=== PATIENT | male | born 1950 | race Caucasian/White ===

== ENCOUNTER → 2020-08-11 10:33 | Outpatient (CLI) | payer OTHER, SELFPAY ==
[2020-08-11 13:48] LABS: COVID19 -Nasal RAPID Negative (Negative)
== END ==
PROVIDERS: PCP Physician Assistant; Referring Provider Orthopaedic Surgery Adult Reconstructive Orthopaedic Surgery; Visit Provider Student in an Organized Health Care Education/Training Program
DX: Z01.812 Encounter for preprocedural laboratory examination (principal); Z20.822 Contact with and (suspected) exposure to COVID-19
CPT/HCPCS: 87635

== ENCOUNTER 2020-08-13 11:31 | Day surgery (SDC) | payer OTHER, SELFPAY ==
[2020-08-07 10:47] VITALS: BMI 31.7
[2020-08-13] VITALS (15 sets, daily range): BP systolic 95–146; BP diastolic 54–80; PULSE 61–81; RESP 8–18; TEMP 36.1–36.7; O2SAT 94–99; BMI 31.7
--- NOTE | 2020-08-13 | DI.RAD.S_ITS ---
PROCEDURE: XR HIP W PEL IF DONE RT 2V INDICATIONS: TOTAL HIP TECHNIQUE: 2 view(s) of the hip acquired. COMPARISON: None. FINDINGS: Bones: Patient is status post right hip arthroplasty, with hardware components in expected positions. The hip joint appears congruent. The visualized bony structures appear intact. Soft tissues: Overlying postoperative changes are noted. No suspicious soft tissue densities. IMPRESSION: Normal alignment after right total hip arthroplasty performed earlier same day. Dictated by: Jeremy Armenta M.D. on 08/13/2020 at 16:21 Approved by: Jeremy Armenta M.D. on 08/13/2020 at 16:21
--- NOTE | 2020-08-13 10:20 | DI.RAD.S_ITS ---
PROCEDURE: XR PELVIS 1-2V INDICATIONS: post-op TECHNIQUE: Single frontal view of the pelvis acquired. COMPARISON: [facility], CR, XR HIP W PEL IF DONE RT 2V, 08/13/2020, 14:07. FINDINGS: Bones: No fractures or dislocations. No suspicious bony lesions. A previously present left total hip arthroplasty is now well visualized with reference to the intraoperative/immediate postoperative plain films earlier today, and the current examination shows no evidence of that device loosening or disruption. The new right-sided total hip arthroplasty shows normal alignment, and no operative complication is suspected. Soft tissues: Visualized bowel gas pattern is normal. No suspicious soft tissue calcifications. IMPRESSION: New right total hip arthroplasty appears normally aligned. Old left total hip arthroplasty appears free of evidence of loosening or disruption. Dictated by: Jeremy Armenta M.D. on 08/13/2020 at 16:21 Approved by: Jeremy Armenta M.D. on 08/13/2020 at 16:23
[2020-08-13] MEDS: ACETAMINOPHEN 325 MG TABLET 975 MG PO (12:06)
[2020-08-13] MEDS: CELECOXIB 200 MG CAPSULE PO (12:07)
[2020-08-13] MEDS: PREGABALIN 75 MG CAPSULE PO (12:07)
[2020-08-13] MEDS: LACTATED RINGERS 1,000 ML 42 ML IV (12:07)
--- NOTE | 2020-08-13 12:44 | PM.PREOP ---
Pre-operative Note COVID-19 COVID-19 status: Negative Result date/Date tested (Pos, Neg/Pending): 08/11/20 Interval Note History & Physical reviewed/Exam performed by Physician: Yes Changes to H&P: No H&P completed within 30 days and has changed as indicated here:: Plan for right anterior VIVIAN
[2020-08-13] MEDS: CEFAZOLIN 2 GM/100 ML FROZ.PIGGY IV (13:21)
[2020-08-13] MEDS: TRANEXAMIC ACID 1,000 MG VIAL 2000 MG INJ ×2 (13:40→14:59)
[2020-08-13] MEDS: KETOROLAC 30 MG/ML VIAL IV (13:47)
[2020-08-13] MEDS: MORPHINE 4 MG/ML INJ INJ (13:49)
[2020-08-13] MEDS: ROPIVACAINE 0.5% PF 5 MG/ML 20ML VIAL 60 ML INJ (13:49)
--- NOTE | 2020-08-13 13:55 | SUR.OPER ---
Supine, head on pillow, torso on pink pad positioner. Iliac crest at flex of foot end of table. Gel roll under operative hip. Both arms secured on arm boards <90 degrees abduction.
--- NOTE | 2020-08-13 14:59 | P.OP_ITS ---
Operative Date/Time/Diagnoses Date of procedure: 08/13/20 Time of procedure: 14:59 Pre-op diagnosis: right hip OA Post-op diagnosis: same Procedure & Clinicians Procedure: Right anterior VIVIAN Same procedure as scheduled: Yes Indications: Right hip osteoarthritis with [id number] articulation of the acetabulum on femoral head as well as large head neck junction osteophytes. Large rim osteophytes. Resistant to further conservative measures. Surgeon: Philip Zhu Adding Machine Mechanic: Jermaine Vance Anesthesia Type: General and Spinal Operative Notes Findings: Large rim osteophytes large head neck junction osteophytes end-stage osteoarthritis of the right hip. Closure Type: primary Specimen(s): none sent Prosthetic devices, grafts, tissues, transplants, or devices: [employer] [employer] R3 cup 54 mm diameter 3 hole 1x 25mm screw 1x 20 mm screw 54 mm x 36 mm neutral offset polyethylene liner Size 7 standard offset anthology femoral stem 36+ 4 delta Biolox ceramic head Estimated Blood Loss (mL): 300 Blood products transfused: none Procedure in detail: Patient was met in the preoperative holding area where the site and side of surgery were marked by . Informed consent had been reviewed and signed in clinic was also reviewed in the preoperative holding area all last minute questions were answered. Patient was then brought back in the operating room where he was induced under general anesthesia. Both feet were placed in well-padded on a table boots. The right lower extremity then prepped and draped in normal sterile fashion. A surgical time-out was performed verifying the site and side of surgery as well as the name of the patient. A skin incision over the right anterior hip was made in the skin using 10. Blade starting approximately 2 cm distal and 1 cm lateral to the ASIS aiming towards the fibular head. Electrocautery was then used to dissect down to the level of the tensor fascia. A new 10. Blade was then used to incise the tensor fascia Allis clamp was placed on the medial leaflet of the tensor fascia of the tensor muscle itself was reflected laterally and a Cobra was placed over the superior aspect of the femoral neck. A Meyerding retractors then placed over the lateral aspect of the rectus femoris and retracted medially the was good exposure to the ascending branch of the femoral circumflex vessels. These were coagulated using electrocautery. A 2nd Cobra retractor was then placed in the inferior aspect of the femoral neck. And the pericapsular fat was removed. A bent Hohmann was placed over the anterior lip of the acetabulum to give us good exposure to the capsule. Inverted T- shaped capsulotomy was then performed in the FiberWire sutures were used for the superior and inferior leaflet tag sutures. The Cobra retractors then placed intracapsularly which gave us good exposure the femoral neck. This point was noted he had copious large head neck junction osteophytes. A reciprocating saw was then used to make our femoral neck cut. A corkscrew was then used to remove the femoral head. A soft tissue sleeve protector was then placed into the wound and retractors were then replaced to give us acetabular exposure. The remnant of the labrum was removed with a [place] blade and a pituitary rongeur. The pulmonary was then removed using suction and electrocautery. Next I began reaming with a 44 mm Reamer to medialized I then brought in fluoroscopy and the final reamings under fluoroscopic guidance. I up sized by 2s until I got to a 52 mm Reamer was started have good fit I dissected 53 mm Reamer and reamed this under fluoroscopic guidance as well a 54 mm 3 hole R3 cup was then selected and malleted into place under fluoroscopic guidance. This had excellent fit and bite. Two dome screws were then placed and the polyethylene liner was then [place] kobe making sure the tabs were flush with the rim of the cup and there is no soft tissue interposition. At this point posterior inferior osteophyte was removed using a curved osteotome and a rongeur. Next I placed a femoral elevator hook into the posterior aspect of the femur the femur was then externally rotated to 120? of external rotation extended to the floor and adducted. Next a bent Hohmann was placed over the superior aspect of the superior leaf of the capsulotomy and the capsule was further released off the inner shoulder of the greater trochanter to produce a soft spot. Once this was achieved a single-point retractors placed over the top of the greater trochanter and a Meyerding retractor was then placed over the medial calcar to give us good exposure. A canal finer was then used followed by a chili pepper broach to the lateralize followed by a size 1 broach then began upsizing by 1 until I got to a size 7 broach. At this point I placed a standard offset neck and we trialed a 36+ 0 head. The hip was reduced. The hip was stable to maximal external rotation as well extra external rotation 90? extension the floor. At this point fluoroscopy was brought in which showed good canal fit with the stem and did appear to be a little short on the operative side. The hip was then dislocated the trial components were removed as well as the broach. A size 7 standard offset anthology stem was then selected and malleted into place. Next a 36+ 4 delta Biolox ceramic head was malleted onto the trunnion and the hip was reduced a final time. Hip was stable to maximal external rotation as well as external rotation 90? extension the floor. Betadine solution was then placed in the wound allowed to sit for several minutes final fluoroscopic imaging was obtained. I then copiously irrigated the hip with normal saline. Periarticular soft tissue local anesthetic infiltration was then performed the capsulotomy was repaired using a running Ethibond suture in the FiberWire tag sutures removed. The tensor fascia was repaired using a running locking 1. Vicryl followed by 2 Vicryl in the subcutaneous layer followed by 3-0 Stratafix in subcuticular layer followed by Dermabond and Aquacel dressing. Complications: none Post-operative Condition: stable Disposition: PACU Plan for aftercare: 24 hours post-op abx, WBAT RLE, ASA 81mg BID for 6 weeks for DVT prophylaxis
[2020-08-13] MEDS: HYDROMORPHONE 2 MG INJ IV (15:49)
[2020-08-13] MEDS: OXYCODONE IR 5 MG TABLET PO (15:59)
--- NOTE | 2020-08-13 16:40 | SUR.PHASEI ---
Pt transferred to 220. Hand-off at bedside to Humberto RN Bed lowered, call light in reach. Family at bedside.
[2020-08-13] MEDS: LACTATED RINGERS 1,000 ML 125 ML IV (16:49)
[2020-08-13] MEDS: IBUPROFEN 400 MG TABLET PO ×2 (16:49→20:58)
[2020-08-13] MEDS: ACETAMINOPHEN 325 MG TABLET 650 MG PO ×2 (16:49→20:52)
[2020-08-13] MEDS: ASPIRIN EC 81 MG TABLET PO (20:52)
[2020-08-13] MEDS: DOCUSATE 100 MG CAPSULE PO (20:52)
[2020-08-13] MEDS: CEFAZOLIN 1 GM VIAL 2 GM IV (20:53)
[2020-08-14] MEDS: IBUPROFEN 400 MG TABLET PO ×4 (00:55→12:52)
[2020-08-14] MEDS: OXYCODONE IR 5 MG TABLET PO ×3 (00:56→12:52)
[2020-08-14] MEDS: LACTATED RINGERS 1,000 ML 125 ML IV (01:03)
--- NOTE | 2020-08-14 02:08 | PC.NURSE ---
patient is alert and oriented. Breath sounds CTA with RA sat of 96%. HRR. Denies nausea. BT present and abdomen is soft; patient uncertain if he has passed flatus since return from surgery. Voiding per urinal; denies dysuria, frequency or urgency and urine is clear yellow. Is able to turn himself in bed. Gait not assessed at this time. Aquacel dressing to right anterior hip is CDI. Does have numbness in right thigh above knee and some chronic numbness in right foot. States pain is 6/10 so medicated with scheduled Ibuprofen + Oxycodone and ice pack applied; patient now asleep. Wearing bilateral calf SCD's. Fall risk score is low but bed alarm on for safety.
[2020-08-14 05:21] VITALS: BP 130/61; PULSE 76; RESP 19; TEMP 36.3; O2SAT 97
[2020-08-14] MEDS: CEFAZOLIN 1 GM VIAL 2 GM IV (05:25)
[2020-08-14 06:22] LABS: Hematocrit 36.5 % (41-53); Hemoglobin 12.1 g/dL (13.5-17.5)
[2020-08-14 08:00] VITALS: BP 127/75; PULSE 65; RESP 17; TEMP 36.6; O2SAT 97
[2020-08-14] MEDS: ACETAMINOPHEN 325 MG TABLET 650 MG PO (08:34)
[2020-08-14] MEDS: DOCUSATE 100 MG CAPSULE PO (08:34)
[2020-08-14] MEDS: allopurinoL 100 MG TABLET 200 MG PO (08:34)
[2020-08-14] MEDS: ASPIRIN EC 81 MG TABLET PO (08:34)
[2020-08-14] MEDS: CHLORTHALIDONE 25 MG TABLET PO (08:34)
--- NOTE | 2020-08-14 08:44 | CM.DANOTE ---
DCP: Case received, EMR reviewed and met with patient. Introduced self and role. Was able to obtain information regarding patient's baseline activity status prior to having surgery. DCP assessment completed with information currently available. Patient is a 70 year old male who admitted yesterday morning to the care of the orthopedic team. PCP: Dr. Gomez/ [facility] Payer: confirmed: [facility]. Patient came to the hospital for a surgical procedure. He had a right anterior total hip arthroplasty. He has had history of chronic hip pain secondary to osteoarthritis. Met with patient in his room. He was sitting up in bed having breakfast. Patient is pleasant. He was in the [employer] in [place]. He confirmed that his ex-, Mckayla, will be assisting him when he goes home. He has not yet worked with [employer]. He resides in [place]. He usually sees Dr. Gomez as his primary care provider, but also has [facility], [facility]. He has been driving, but also has been using a cane, and has a FWW as well for his chronic pain. P: DCP to continue to follow. Patient should be able to go home when he is medically stable and cleared by P.T. Carrol Moser RN/Np
--- NOTE | 2020-08-14 09:26 | PM.PNPO.1 ---
Subjective Subjective Date Patient Seen: 08/14/20 Time Patient Seen: 09:27 Interval history: Patient states he is doing well overall and is in minimal discomfort at rest. At this time the patient denies fever, chills, nausea, chest pain, shortness of breath, or urinary retention. Patient reports good sensation throughout the bilateral lower extremity. The explains that he is looking forward to working with physical therapy and ultimately being discharged home today. Exam Vital Signs (past 8 hours): - 08/14/20 05:21 08/14/20 08:00 Temperature 97.3 F L 97.8 F Pulse Rate 76 65 Respiratory Rate 19 17 Blood Pressure 130/61 127/75 Pulse Oximetry 97 97 Oxygen Delivery Method Room Air Oxygen Flow Rate 0 Narrative Exam Narrative: Pleasant 70-year-old male postop day 1 status post right anterior total hip arthroplasty. Patient is resting comfortably in bed, is in no acute distress, is alert and oriented x3. Skin is warm dry, and the skin surrounding the incision site is free of erythema, warmth, induration, or discharge. Dressing over the incision site is free of strike through is clean and dry. Good sensation appreciated throughout the bilateral lower extremities to light touch. Ankle dorsiflexion, plantar flexion, eversion, inversion performed bilaterally without difficulty or discomfort. Calves are soft nontender, negative Homans sign. Capillary refill less than 2 seconds, palpable pulses appreciated. No other signs of DVT appreciated at this time. Const General: cooperative, healthy appearing and comfortable Resp Effort & Inspection: normal respiratory effort and able to speak in complete sentences Skin General: no rashes or lesions noted Objective Labs Result Diagrams: 08/14/20 05:52 Labs: Laboratory Results - last 24 hr 08/14/20 05:52 Hgb 12.1 L Hct 36.5 L PFSH Medical History Acid reflux Anxiety Depression Gout Hearing loss History of anesthesia reaction HTN (hypertension) Jaundice (~2012) Osteoarthritis Panic attacks Surgical History History of arthroplasty of left hip (2007) History of arthroscopy of both shoulders History of vasectomy Hx of cholecystectomy (~2012) Social History household members: spouse Smoking Status: Current every day smoker alcohol intake: current Assessment & Plan Post-op Postoperative Procedures: Procedures Operation Date: 08/13/20 13:15 Actual Procedures Side Surgeon p Total Hip Arthroplasty/Anterior Approach Right Philip Zhu MD Postoperative day: 1 Postoperative status: doing well Postoperative plan: ambulate Postoperative plan narrative: Patient is to work on ambulation with physical therapy with the assistance of a front wheeled walker. Patient to remain weight-bearing as tolerated at this time. Current pain management regimen is to be continued as is currently controlling the patient's pain level adequately. Aspirin 81 mg twice daily is to be continued for DVT prophylaxis. Patient will possibly be discharged today following successful visit with PT. Time Spent With Patient Time with patient: 15-24 minutes Quality VTE Deep Vein Thrombosis/Pulmonary Embolism Present on Admission: No
--- NOTE | 2020-08-14 10:09 | PM.DS.1 ---
History of Present Illness History of Present Illness Date Patient Seen: 08/14/20 Time Patient Seen: 10:10 Chief complaint: OPB Narrative: Referred to previous HPI. Discharge Providers Provider Discharge Date: 08/14/20 Primary care physician: Justen Gardner PA-C Consults: 08/13/20 10:19 Consult to Anesthesiology Routine Comment: Consulting Provider: Anesthesiologist Reason for consultation: Regional block for post operative pain control 08/13/20 12:32 Consult to Respiratory Therapy Evaluate & Treat Comment: Physician Instructions: Evaluate and treat 08/13/20 16:29 Consult to Discharge Planning Routine Comment: Consult to Physical Therapy Evaluate & Treat Comment: Physician Instructions: post op VIVIAN protocol Consult to Respiratory Therapy Evaluate & Treat Comment: Physician Instructions: Evaluate and treat Discharge provider: Sourav Stevens PA-C Summary Hospital Course Discharge Diagnosis: Right hip osteoarthritis Status post right anterior total hip arthroplasty Hospital Course: Patient was admitted to the hospital following the above-listed procedure for the above-listed diagnosis. Following the procedure the patient has been convalescing appropriately and his pain has been managed with his current pain management regimen. The patient is successfully worked on ambulation with PT with the assistance of a front wheeled walker. Aspirin 81 mg twice daily has been administered for DVT for prophylaxis. Throughout the course of his stay in the hospital the patient has denied fever, chills, nausea, chest pain, shortness of breath, or urinary retention. Patient has remained weight-bearing as tolerated with anterior hip replacement precautions. Status at Discharge Cognitive/behavioral status at discharge: oriented Functional status at discharge: uses cane/walker Overall status at discharge: patient is progressing back to baseline Exam Vital Signs (past 8 hours): - 08/14/20 05:21 08/14/20 08:00 Temperature 97.3 F L 97.8 F Pulse Rate 76 65 Respiratory Rate 19 17 Blood Pressure 130/61 127/75 Pulse Oximetry 97 97 Oxygen Delivery Method Room Air Oxygen Flow Rate 0 Narrative Exam Narrative: Pleasant 70-year-old male postop day 1 status post right anterior total hip arthroplasty. Patient is resting comfortably in bed, is in no acute distress, is alert and oriented x3. Skin is warm dry, and the skin surrounding the incision site is free of erythema, warmth, induration, or discharge. Good sensation appreciated throughout the bilateral lower extremities to light touch. Ankle dorsiflexion, plantar flexion, eversion, inversion performed bilaterally without difficulty or discomfort. Calves are soft nontender, negative Homans sign. Capillary refill less than 2 seconds, palpable pulses appreciated. No other signs of DVT appreciated at this time. Const General: cooperative, healthy appearing and comfortable Resp Effort & Inspection: normal respiratory effort and able to speak in complete sentences Skin General: no rashes or lesions noted Objective Labs Result Diagrams: 08/14/20 05:52 Labs: Laboratory Results - last 24 hr 08/14/20 05:52 Hgb 12.1 L Hct 36.5 L PFSH Medical History Acid reflux Anxiety Depression Gout Hearing loss History of anesthesia reaction HTN (hypertension) Jaundice (~2012) Osteoarthritis Panic attacks Surgical History History of arthroplasty of left hip (2007) History of arthroscopy of both shoulders History of vasectomy Hx of cholecystectomy (~2012) Social History household members: spouse Smoking Status: Current every day smoker alcohol intake: current Discharge Assessment & Plan Assessment and Plan Assessment: Patient is doing well. Plan of Treatment: Patient is to continue working with PT in the outpatient setting following discharge from the hospital. Patient is to remain weight-bearing as tolerated with the assistance of a front wheeled walker, anterior hip replacement precautions. Current pain management regimen is to be continued as it is adequately controlled the patient's pain level. Aspirin 81 mg twice daily is to be continued for 6 weeks for DVT prophylaxis. First postoperative visit in the clinic is scheduled for 2 weeks following discharge from the hospital. The dressing over the incision site is to remain clean dry and intact. Patient is to contact the clinic if the dressing is removed or damaged. Any concerns or questions should be reported to the clinic. Any increased redness, swelling, pain, or discharge around the incision site should be reported to the clinic. Discharge Plan Discharge Plan Patient Disposition: Home Provider Discharge Comment: Patient cleared for discharge pending PT clearance. Discharge orders & Medications Discharge Orders: Discharge (Order); Ordered 08/14/20 Ordered By: Sourav Stevens Prescriptions: New acetaminophen 325 mg Tablet 650 mg PO TID Qty: 90 RF: 0 aspirin 81 mg Tablet,Delayed Release (Dr/Ec) 81 mg PO BID Qty: 90 RF: 0 ibuprofen 400 mg Tablet 400 mg PO Q4HR Qty: 90 RF: 0 oxycodone 5 mg Tablet 10 mg PO Q3HR PRN (Reason: Pain, Severe (7-10)) Qty: 42 RF: 0 Continued celecoxib 200 mg Capsule 200 mg PO DAILY PRN (Reason: Pain) RF: 0 chlorthalidone 25 mg Tablet 25 mg PO DAILY RF: 0 allopurinol 100 mg Tablet 200 mg PO DAILY RF: 0 aspirin [Aspirin Low Dose] 81 mg Tablet,Delayed Release (Dr/Ec) 81 mg PO DAILY RF: 0 fluticasone propionate 50 mcg/actuation [place],Suspension 1 spray INTRANASAL BID PRN (Reason: Congestion) RF: 0 Follow up/Referrals: Justen Gardner PA-C [Primary Care Provider] - Diet/Activity/Treatments Diet: Diet as Tolerated Activity: Weight-bearing as tolerated with the assistance of a front wheeled walker. Skin/Wound/Dressing Care Report to your healthcare provider any signs of infection, such as:: chills, fever, night sweats, increased pain, unusual drainage and unusual redness Dressing: Dressing over the incision site is to remain intact. Contact the clinic if the dressing becomes soiled, saturated, or destroyed. Other wound treatment: Avoid placing topical ointments over the incision site. Visit Report/Discharge Packet Instructions: DI for Hip Replacement Stand Alone Forms: Surgery Discharge Discharge Data Primary Care Provider: Justen Gardner Attending Provider: Philip Zhu VTE Deep Vein Thrombosis/Pulmonary Embolism Present on Admission: No
--- NOTE | 2020-08-14 10:10 | PT.IIE ---
Current Diagnoses Unilateral primary osteoarthritis, right hip (08/13/20) Surgery Performed Operation Date: 08/13/20 13:15 Actual Procedures p Total Hip Arthroplasty/Anterior Approach(Right) - Philip Zhu MD Surgical History (Last Reviewed 08/14/20 @ 10:12 by Sourav Stevens PA-C) History of arthroplasty of left hip (2007) History of arthroscopy of both shoulders History of vasectomy Hx of cholecystectomy (~2012) Medical History (Last Reviewed 08/14/20 @ 10:12 by Sourav Stevens PA-C) Acid reflux Anxiety Depression Gout Hearing loss History of anesthesia reaction HTN (hypertension) Jaundice (~2012) Osteoarthritis Panic attacks Physical Therapy Inpatient Evaluation/Re-Eval M1 PT/OT-IP Prior Functional Status Start: 08/14/20 12:26 Freq: NEEDED Status: Active Protocol: Document 08/14/20 10:10 AB (Rec: 08/14/20 12:42 [email or web address] Medical Review Prior Functional Status Medical History Reviewed Yes Communication able to make needs known Mobility and Gait pt stated that he is modified independent with all mobilities, uses FWW indoors or furniture cruises as well and occasionally uses a his 2 walking sticks Social History Household Members spouse Living Arrangements Mobile home Number of Floors (Floors) One Floor Number of Stairs To Enter/Railing? 3 steps B rails to enter Home Environment High Toilet,Tub/Shower Home Equipment Front Wheel Walker,Straight Cane Employment Status Retired M2 PT-IP Current Condition Start: 08/14/20 12:26 Freq: NEEDED Status: Active Protocol: Document 08/14/20 10:10 AB (Rec: 08/14/20 12:42 AB [id number]) Physical Therapy Current Condition Current Condition Evaluation Date 08/14/20 Treatment Diagnosis s/p R VIVIAN anterior approach; difficulty in walking Onset Date 08/13/20 Precautions Anterior Hip Precautions No Hip Extension,No Hip External Rotation Weight Bearing Status Weight Bearing Status Weight Bear as Tolerated Allowed Weight Bearing Amount (enter % RLE WBAT or #) (%) M3 PT-IP Subjective Start: 08/14/20 12:26 Freq: NEEDED Status: Active Protocol: Document 08/14/20 10:10 AB (Rec: 08/14/20 12:42 AB [email or web address]) Subjective Physical Therapy Visit Type Type Initial Evaluation Visit Start Time 10:10 Visit Stop Time 11:10 Total Visit Minutes 60 Number of CAT BREEDER Visits 0 Physical Therapy Visit Comments Patient Comments pt is agreeable to do PT Therapy Pain Assessment Pain When Pain Assessed At Rest Pain Present Pain Present Pain Reported Location r hip Intensity 3 Scale Used Numeric (0 - 10) Pain Management Techniques Apply Cold,Distraction, Modification of Treatment,Re- positioning,Timing of Activity with Medications M4 PT-IP Mobility and Gait Start: 08/14/20 12:26 Freq: NEEDED Status: Active Protocol: Document 08/14/20 10:10 AB (Rec: 08/14/20 12:42 AB [id number]) PT-Bed Mobility Assessment Supine to Sit Supine to Sit Standby Assistance PT-Transfer Assessment Sit to and From Stand Sit to and from Stand Contact Guard Assistance,1 Person Assistance,Use of Upper Extremities Equipment Transfer Assistive Device Gait Belt,Front Wheeled Walker Orthotic/Prosthetic Devices or Brace: No Transfers Transfer Destination Chair Transfer Technique ambulated using FWW Transfer Ability Level of Assist Contact Guard Assistance,1 Person Assistance,Use of Upper Extremities Comments Mobility Comments educated pt on hip precautions . pt requires cues to recall. completed supine to sit SBA and was able to sit on EOB SBA . pt completed sit to stand CGA and ambulated in room using FWW CGA and cues for precautions. pt rested and agreed to ambulate in hallway after resting. completed ~ 100 ft of ambulation using FWW SBA to CGA and occasional cues for safety and precautions. educated pt on stair climbing technique and completed up/ down steps using bilateral rails CGA. assisted pt back to his room. ambulated from w/c to chair using FWW SBA. reviewed techniques with pt and pt continues to get confuse with precautions. set up caregiver training but pt was not able to get a hold of his spouse. will conduct caregiver training in the afternoon. Left pt on chair with call light and table placed within reach. Gait Assessment Gait Gait Assistance Required: Standby Assistance,Contact Guard Assist Distance (Feet) 100 Able to Maintain Weight Bearing Status Yes During Gait Assistive Devices Assistive Device Gait Belt,Front Wheeled Walker Orthotic/Prosthetic Devices or Brace: No Gait Deviations General Gait Pattern Decreased Stride Length, Decreased Feet Clearance Factors Limiting Gait Function Factors Limiting Gait Function Decreased Activity Tolerance, Decreased Strength,Difficulty Following Directions,Limited Range of Motion,Pain,Poor Safety Awareness Comments Gait Comments pls refer to mobility section for details Stair Climbing Assessment Evaluation Level of Assist On Stairs Contact Guard Assistance Devices Stair Climbing Assistive Devices Left Railing,Right Railing Technique/Endurance Stair Climbing Direction Ascend and Descend Stair Climbing Technique Step to Step Number of Steps Climbed 3 Query Text: Stair Climbing Set # Repetitions (reps) 1 PT-Balance Assessment Sitting Balance and Reactions Static Sitting Balance Ability Good Dynamic Sitting Balance Ability Good Standing Balance and Reactions Static Standing Balance Ability Fair Dynamic Standing Balance Ability Fair Device Used FWW M5 PT-IP Objective Assessments Start: 08/14/20 12:26 Freq: NEEDED Status: Active Protocol: Document 08/14/20 10:10 AB (Rec: 08/14/20 12:42 AB [email or web address]) Orientation Orientation/Cognition Level of Alertness Alert Orientation Name,Place,Situation Safety Awareness Decreased Safety Awareness Memory Description Short Term Impaired Gross Range of Motion Lower Extremity ROM Assessment Within Functional Limits Strength Lower Extremity Strength Assessment Right Impaired Hip 3+/5 Knee 4-/5 Coordination Assessment Gross Coordination Gross Coordination WNL Sensation Assessment Sensation Gross Sensation WNL Muscle Tone Muscle Tone WNL Yes M6 PT-IP Treatment Start: 08/14/20 12:26 Freq: NEEDED Status: Active Protocol: Document 08/14/20 10:10 AB (Rec: 08/14/20 12:42 AB [email or web address]) Physical Therapy Treatment Education Education Provided Precautions,Weight Bearing Status,Post-Op Packet,Safety M7 PT-IP Assessment and Plan Start: 08/14/20 12:26 Freq: NEEDED Status: Active Protocol: Document 08/14/20 10:10 AB (Rec: 08/14/20 12:42 AB [email or web address]) PT Summary Assessment and Plan Potential Rehabilitation Potential Good Status of Condition at Evaluation Stable Summary Impairments Pain,ROM,Strength,Balance, Coordination,Cognition,Bed Mobility,Transfers,Gait, Activity Tolerance Assessment Summary pt requiring SBA to CGA with mobility. caregiver training will be conducted in the afternoon with spouse as pt continues to require cues to maintain hip precautions. pt plans to go home after caregiver training. pt stated that he is set up for outpt PT. Goals Bed Mobility Goal Independent Transfer Goal Independent,Front Wheeled Walker Gait Goal Independent,Front Wheel Walker Gait Distance 150 Other Goals up/down 3 steps B rails SBA Days to Meet Goals 3 Frequency of Treatment Frequency Of Treatment Twice a Day Treatment Plan Physical Therapy Treatment Plan Bed Mobility Training,Transfer Training,Gait Training, Therapeutic Exercise,Balance Retraining,Post Op Education, Discharge Planning,Hot or Cold Pack,Neuromuscular Re-ed, Coordination Retraining,Manual Therapy Other Recommendations and Next Treatment caregiver training Focus Precautions Anterior Hip Precautions No Hip Extension,No Hip External Rotation Recommendations To Nursing Amount of Assist Needed 1 Person Assist Discharge Recommendations PT Discharge Recommendations Home with Assistance, Outpatient PT Transportation Needs at Discharge Private Vehicle
[2020-08-14 12:00] VITALS: BP 134/73; PULSE 80; RESP 18; TEMP 37.2; O2SAT 95
--- NOTE | 2020-08-14 13:38 | PT.IPTN ---
Current Diagnoses Unilateral primary osteoarthritis, right hip (08/13/20) Surgery Performed Operation Date: 08/13/20 13:15 Actual Procedures p Total Hip Arthroplasty/Anterior Approach(Right) - Philip Zhu MD Physical Therapy Treatment Note M2 PT-IP Current Condition Start: 08/14/20 12:26 Freq: NEEDED Status: Active Protocol: Document 08/14/20 10:10 AB (Rec: 08/14/20 12:42 AB [email or web address]) Physical Therapy Current Condition Current Condition Evaluation Date 08/14/20 Treatment Diagnosis s/p R VIVIAN anterior approach; difficulty in walking Onset Date 08/13/20 Precautions Anterior Hip Precautions No Hip Extension,No Hip External Rotation Weight Bearing Status Weight Bearing Status Weight Bear as Tolerated Allowed Weight Bearing Amount (enter % RLE WBAT or #) (%) M3 PT-IP Subjective Start: 08/14/20 12:26 Freq: NEEDED Status: Active Protocol: Document 08/14/20 12:59 CLB (Rec: 08/14/20 13:59 CLB [id number]) Subjective Physical Therapy Visit Type Type Treatment Note Visit Start Time 12:59 Visit Stop Time 13:38 Total Visit Minutes 39 Notes present for CG training Number of DIRECTOR OF OCCUPATIONAL HEALTH Visits 0 Physical Therapy Visit Comments Patient Comments pt is agreeable to do PT Therapy Pain Assessment Pain When Pain Assessed At Rest Pain Present Pain Present Pain Reported Location r hip Intensity 2 Scale Used Numeric (0 - 10) Pain Management Techniques Re-positioning,Timing of Activity with Medications M4 PT-IP Mobility and Gait Start: 08/14/20 12:26 Freq: NEEDED Status: Active Protocol: Document 08/14/20 12:59 CLB (Rec: 08/14/20 13:59 CLB [id number]) PT-Transfer Assessment Sit to and From Stand Sit to and from Stand Standby Assistance,1 Person Assistance,Use of Upper Extremities Equipment Transfer Assistive Device Gait Belt,Front Wheeled Walker Orthotic/Prosthetic Devices or Brace: No Transfers Transfer Destination Chair,Wheelchair Transfer Technique ambulated using FWW Transfer Ability Level of Assist Standby Assistance,1 Person Assistance,Use of Upper Extremities Comments Mobility Comments Pt recalled 2/2 anterior hip precautions, and recalled gait and stair sequencing. Pt stood with providing SBA and transferred to . Pt climbed stairs SBA provided by with cuing pt appropriately for turning at top of stairs to prevent hip ER. Pt ambulated in arce ~ 100ft then sat in WC back to room. Pt uses step to gait pattern with cues to stay inside walker frame and not to picker walker. Pt stood from WC and ambulated into BR with assisting. Pt returned to chair SBA. Pt left in chair with all needs within reach and present, RN informed of pt progress toward d/c. Gait Assessment Gait Gait Assistance Required: Standby Assistance,1 Person Assist Distance (Feet) 100 Able to Maintain Weight Bearing Status Yes During Gait Assistive Devices Assistive Device Gait Belt,Front Wheeled Walker Orthotic/Prosthetic Devices or Brace: No Gait Deviations General Gait Pattern Decreased Stride Length, Decreased Feet Clearance Factors Limiting Gait Function Factors Limiting Gait Function Decreased Activity Tolerance, Decreased Strength,Difficulty Following Directions,Limited Range of Motion,Pain,Poor Safety Awareness Comments Gait Comments pls refer to mobility section for details Stair Climbing Assessment Evaluation Level of Assist On Stairs Standby Assistance,1 Person Assistance Devices Stair Climbing Assistive Devices Left Railing,Right Railing Technique/Endurance Stair Climbing Direction Ascend and Descend Stair Climbing Technique Step to Step Number of Steps Climbed 3 Stair Climbing Set # Repetitions (reps) 1 PT-Balance Assessment Sitting Balance and Reactions Static Sitting Balance Ability Good Dynamic Sitting Balance Ability Good Standing Balance and Reactions Static Standing Balance Ability Fair Dynamic Standing Balance Ability Fair Device Used FWW M5 PT-IP Objective Assessments Start: 08/14/20 12:26 Freq: NEEDED Status: Active Protocol: Document 08/14/20 10:10 AB (Rec: 08/14/20 12:42 AB [email or web address]) Orientation Orientation/Cognition Level of Alertness Alert Orientation Name,Place,Situation Safety Awareness Decreased Safety Awareness Memory Description Short Term Impaired Gross Range of Motion Lower Extremity ROM Assessment Within Functional Limits Strength Lower Extremity Strength Assessment Right Impaired Hip 3+/5 Knee 4-/5 Coordination Assessment Gross Coordination Gross Coordination WNL Sensation Assessment Sensation Gross Sensation WNL Muscle Tone Muscle Tone WNL Yes M6 PT-IP Treatment Start: 08/14/20 12:26 Freq: NEEDED Status: Active Protocol: Document 08/14/20 12:59 CLB (Rec: 08/14/20 13:59 CLB [id number]) Physical Therapy Treatment Exercises Exercises Ankle Pumps,Gluteal Sets,Quad Sets Education Education Provided Precautions,Weight Bearing Status,Post-Op Packet,Safety Other Treatments Other Treatment Performed educated pt on car transfer M7 PT-IP Assessment and Plan Start: 08/14/20 12:26 Freq: NEEDED Status: Active Protocol: Document 08/14/20 12:59 CLB (Rec: 08/14/20 13:59 CLB [id number]) PT Summary Assessment and Plan Potential Rehabilitation Potential Good Status of Condition at Evaluation Stable Summary Impairments Pain,ROM,Strength,Balance, Coordination,Cognition,Bed Mobility,Transfers,Gait, Activity Tolerance Assessment Summary Pt present and is able to appropriately assist pt with all mobility. Pt with good carryover recalling 2/2 precautions and how to sequence steps forward and backward to prevent breaking precautions. Pt is SBA for all mobility and seems able to d/ c home with to assist. Pt has OP PT scheduled. Goals Bed Mobility Goal Independent Transfer Goal Independent,Front Wheeled Walker Gait Goal Independent,Front Wheel Walker Gait Distance 150 Other Goals up/down 3 steps B rails SBA Days to Meet Goals 3 Frequency of Treatment Frequency Of Treatment Twice a Day Treatment Plan Physical Therapy Treatment Plan Bed Mobility Training,Transfer Training,Gait Training, Therapeutic Exercise,Balance Retraining,Post Op Education, Discharge Planning,Hot or Cold Pack,Neuromuscular Re-ed, Coordination Retraining,Manual Therapy Precautions Anterior Hip Precautions No Hip Extension,No Hip External Rotation Recommendations To Nursing Amount of Assist Needed 1 Person Assist Discharge Recommendations PT Discharge Recommendations Home with Assistance, Outpatient PT Transportation Needs at Discharge Private Vehicle
--- NOTE | 2020-08-14 14:12 | PC.NURSE ---
Discharge note: Patient discharged home per MD order and cleared by PT. Discharge instructions given to patient and spouse Mckayla, discussed importance of F/U with Ortho as scheduled, dressing care, new medications, mobility/hip precautions, and s/sx of infection. Both patient and spouse verbalized understanding of instructions. Home via private vehicle to [place] with a stop at [facility] for Rx orange picker.
== END 2020-08-14 14:16 | disposition home or self-care (01) ==
LOC: OR 11:34 → AC 11:34
PROVIDERS: PCP Physician Assistant; Referring Provider Orthopaedic Surgery Adult Reconstructive Orthopaedic Surgery; Visit Provider Orthopaedic Surgery Adult Reconstructive Orthopaedic Surgery
PROC: (CPT 27130; principal; 2020-08-13 13:15)
DX: M16.11 Unilateral primary osteoarthritis, right hip (principal); I10 Essential (primary) hypertension; F17.210 Nicotine dependence, cigarettes, uncomplicated; F41.9 Anxiety disorder, unspecified; F32.9 Major depressive disorder, single episode, unspecified; M79.7 Fibromyalgia; M81.0 Age-related osteoporosis without current pathological fracture; G47.30 Sleep apnea, unspecified; M25.751 Osteophyte, right hip
CPT/HCPCS: 27130; 36415; 72170; 73502; 85014; 85018; 97116; 97161; 97530; C1776; J0690; J1100; J1170; J1885; J2270; J2405; J2704; J3010